=== PATIENT | female | born 1970 | race Caucasian/White ===

== ENCOUNTER → 2017-08-18 | Outpatient (CLI) | payer OTHER ==
[~2017-08-18] MED LIST: ATARAX,VISTARIL50 MG PO; BENADRYL ALLERG25 M5 PO; BUPROPION HCL150 M1 PO; CARAFATE1 G1 PO; CARBIDOPA/LEVOD1 TA1 PO; CITALOPRAM40 MG PO; CYMBALTA60 MG PO; DONNATAL1 TAB PO; EFFEXOR75 MG PO; HYDROCO/APAP TAB 10-; HYDROCODONE BIT1 T11 PO; MEDROL DOSEPAK4 MG PO; NORCO 10-325 T1 EACH PO; PREDNICOT20 MG PO; ROBAXIN500 MG PO; SODIUM PHOSPHATE DIBASIC PO; SODIUM PHOSPHATE MONOBASIC PO; TIZANIDINE HCL4 M1 PO; TIZANIDINE HCL4 MG PO; TRAMADOL HCL50 MG PO; VICODIN 5/500 505 MG PO; VICODIN 500 MG-1 TAB PO; XANAX0.25 MG PO; ZANAFLEX4 M2 PO; ZITHROMAX250 MG PO; ZOFRAN 4 MG ED2 TAB PO; [UNRECOGNIZED DRUG - OTHER] PO
== END | disposition home or self-care (01) ==
LOC: MRI 07:51
DX: M48.061 Spinal stenosis, lumbar region without neurogenic claudication (principal); M51.26 Other intervertebral disc displacement, lumbar region

== ENCOUNTER → 2017-10-14 | Outpatient (CLI) | payer OTHER | END | disposition home or self-care (01) | LOC: MAMMO 13:04 | DX: N64.9 Disorder of breast, unspecified (principal) ==

== ENCOUNTER 2018-08-11 15:07 | Emergency (ER) | payer OTHER ==
[~2018-08-11] VITALS: Wt 93.9 kg
[2018-08-11 15:48] LABS: BASO # 0.1 10*3/uL (0.0-0.1); BASO % 0.8 % (0.0-1.0); EOS # 0.1 10*3/uL (0.0-0.4); EOS % 0.8 % (1.0-4.0); HEMATOCRIT 26.9 % (37.0-47.0); HEMOGLOBIN 7.2 g/dl (12.0-16.0); LYMPH # 1.6 10*3/uL (1.3-4.4); LYMPH % 26.2 % (27.0-41.0); MEAN CELL VOLUME 65.1 fl (81.0-99.0); MEAN CORPUSCULAR HGB 17.4 pg (27.0-31.0); MEAN CORPUSCULAR HGB CONC 26.8 g/dl (33.0-37.0); MEAN PLATELET VOLUME 9.6 fl (9.6-12.3); MONO # 0.2 10*3/uL (0.1-1.0); MONO % 3.6 % (3.0-9.0); NEUT % 68.3 % (47.0-73.0); PLATELET COUNT AUTOMATED 472 10*3/uL (130-400); RED BLOOD COUNT 4.13 10*6/uL (4.10-5.10); RED CELL DISTRI WIDTH 22.5 % (0-14.5); WHITE BLOOD COUNT 5.9 10*3/uL (4.8-10.8)
[2018-08-11 15:57] LABS: ACT PARTIAL THROMBO TIME 21.8 SECONDS (20.8-31.5)
[2018-08-11 16:05] LABS: ALBUMIN 3.5 gm/dl (3.1-4.5); ALKALINE PHOSPHATASE 106 U/L (45-117); BUN 20 mg/dl (7-24); CHLORIDE 112 mmol/L (98-107); CREATININE 1.02 mg/dL (0.55-1.02); POTASSIUM 3.9 mmol/L (3.5-5.1); SGOT/AST 18 IU/L (3-35); SGPT/ALT 35 U/L (12-78); SODIUM 143 mmol/L (136-145); TOTAL PROTEIN 7.1 gm/dL (6.4-8.2)
[2018-08-11 17:03] LABS: IRON 12 ug/dL (50-170); TOTAL IRON BINDING CAPACITY 500 ug/dl (250-450)
[2018-08-11 17:39] LABS: FERRITIN 1.7 ng/mL (10.0-291.0)
== END 2018-08-11 21:25 | disposition home or self-care (01) ==
LOC: ED 15:07
PROVIDERS: Nurse Practitioner Family
DX: D50.9 Iron deficiency anemia, unspecified (principal); G89.29 Other chronic pain; K21.9 Gastro-esophageal reflux disease without esophagitis; E03.9 Hypothyroidism, unspecified; Z88.0 Allergy status to penicillin; Z88.8 Allergy status to other drugs, medicaments and biological substances; Z79.899 Other long term (current) drug therapy; Z90.710 Acquired absence of both cervix and uterus; Z90.49 Acquired absence of other specified parts of digestive tract; Z87.891 Personal history of nicotine dependence

== ENCOUNTER → 2020-03-31 | Outpatient (CLI) | payer OTHER ==
[2020-03-31 09:00] LABS: ALBUMIN 3.2 gm/dl (3.1-4.5); BUN 12 mg/dl (7-24); CHLORIDE 114 mmol/L (98-107); CHOLESTEROL 155 mg/dL (<200); CREATININE 0.69 mg/dL (0.55-1.02); POTASSIUM 3.9 mmol/L (3.5-5.1); SGOT/AST 32 IU/L (3-35); SGPT/ALT 60 U/L (12-78); SODIUM 142 mmol/L (136-145); TOTAL PROTEIN 6.6 gm/dL (6.4-8.2); TRIGLYCERIDES 72 mg/dl (<150); VLDL CHOLESTEROL 14 mg/dL (6-40)
[2020-03-31 09:01] LABS: ALKALINE PHOSPHATASE 97 U/L (45-117); HDL CHOLESTEROL 88 mg/dl (40-60); LDL CHOLESTEROL 53 mg/dL (9-159)
[2020-03-31 09:10] LABS: MEAN CELL VOLUME 89.6 fl (81.0-99.0); MEAN CORPUSCULAR HGB 27.3 pg (27.0-31.0); MEAN CORPUSCULAR HGB CONC 30.5 g/dl (33.0-37.0); MEAN PLATELET VOLUME 11.8 fl (9.6-12.3); RED BLOOD COUNT 4.69 10*6/uL (4.10-5.10); WHITE BLOOD COUNT 4.3 10*3/uL (4.8-10.8)
[2020-04-01 08:07] LABS: HEPATITIS B SURFACE AB Reactive (.)
[2020-04-01 12:09] LABS: RUBEOLA AB IGG 21.9 AU/mL (Immune >16.4); VARICELLA-ZOSTER IGG 1205 index (Immune >165)
== END | disposition home or self-care (01) ==
LOC: LAB 08:09
PROVIDERS: ATTEND Family Medicine
DX: Z13.220 Encounter for screening for lipoid disorders (principal); Z02.1 Encounter for pre-employment examination

== ENCOUNTER 2021-09-18 15:19 | Emergency (ER) | payer OTHER ==
[~2021-09-18] VITALS: Ht 162.5 cm; Wt 68.0 kg
[2021-09-18] VITALS (7 sets, daily range): BP systolic 98–118; BP diastolic 62–80
[2021-09-18 16:41] LABS: HEMATOCRIT 22.3 % (37.0-47.0); MEAN CELL VOLUME 62.3 fl (81.0-99.0); MEAN CORPUSCULAR HGB 15.1 pg (27.0-31.0); MEAN CORPUSCULAR HGB CONC 24.2 g/dl (33.0-37.0); MEAN PLATELET VOLUME 8.7 fl (9.6-12.3); PLATELET COUNT AUTOMATED 620 10*3/uL (130-400); RED BLOOD COUNT 3.58 10*6/uL (4.10-5.10); RED CELL DISTRI WIDTH 24.4 % (0-14.5); WHITE BLOOD COUNT 4.7 10*3/uL (4.8-10.8)
[2021-09-18 16:46] LABS: MANUAL DIFF REFLEX YES
[2021-09-18 16:58] LABS: ALKALINE PHOSPHATASE 86 U/L (45-117); BUN 8 mg/dl (7-24); CHLORIDE 109 mmol/L (98-107); CREATININE 0.64 mg/dL (0.55-1.02); POTASSIUM 3.9 mmol/L (3.5-5.1); SGOT/AST 17 IU/L (3-35); SGPT/ALT 34 U/L (12-78); SODIUM 140 mmol/L (136-145); TOTAL PROTEIN 6.5 gm/dL (6.4-8.2)
[2021-09-18 17:07] LABS: BASOPHILS 2 % (0-1); MICROCYTOSIS MODERATE; PLATELET SUFFICIENCY HIGH (NORMAL); TOTAL CELLS COUNTED 100 #CELLS
[2021-09-18 17:08] LABS: OVALOCYTES FEW; POLYCHROMASIA SLIGHT
[2021-09-18 17:09] LABS: SCHISTOCYTES FEW
== END 2021-09-18 23:43 | disposition home or self-care (01) ==
LOC: ED 15:19
PROVIDERS: Physician Assistant
DX: D64.9 Anemia, unspecified (principal); Z88.0 Allergy status to penicillin; Z88.6 Allergy status to analgesic agent; Z90.49 Acquired absence of other specified parts of digestive tract; Z98.890 Other specified postprocedural states; Z90.710 Acquired absence of both cervix and uterus; Z87.891 Personal history of nicotine dependence

== ENCOUNTER → 2021-09-18 | Outpatient (CLI) | payer OTHER ==
[2021-09-18 14:33] LABS: HEMATOCRIT 23.9 % (37.0-47.0); MEAN CELL VOLUME 62.1 fl (81.0-99.0); MEAN CORPUSCULAR HGB 15.3 pg (27.0-31.0); MEAN CORPUSCULAR HGB CONC 24.7 g/dl (33.0-37.0); MEAN PLATELET VOLUME 8.3 fl (9.6-12.3); RED BLOOD COUNT 3.85 10*6/uL (4.10-5.10); RED CELL DISTRI WIDTH 24.7 % (0-14.5); WHITE BLOOD COUNT 5.3 10*3/uL (4.8-10.8)
[2021-09-18 14:51] LABS: BUN 9 mg/dl (7-24); CHLORIDE 107 mmol/L (98-107); CHOLESTEROL 126 mg/dL (<200); CREATININE 0.65 mg/dL (0.55-1.02); IRON 14 ug/dL (50-170); POTASSIUM 3.8 mmol/L (3.5-5.1); SGOT/AST 18 IU/L (3-35); SGPT/ALT 34 U/L (12-78); SODIUM 137 mmol/L (136-145); TRIGLYCERIDES 64 mg/dl (<150)
[2021-09-18 14:53] LABS: ALKALINE PHOSPHATASE 94 U/L (45-117); LDL CHOLESTEROL 34 mg/dL (9-159); TOTAL IRON BINDING CAPACITY 580 ug/dl (250-450); TOTAL PROTEIN 7.1 gm/dL (6.4-8.2)
[2021-09-18 15:14] LABS: VITAMIN D, 25-HYDROXY 23.7 ng/mL (30-100)
== END | disposition home or self-care (01) ==
LOC: LAB 14:12
PROVIDERS: ATTEND Family Medicine
DX: K21.9 Gastro-esophageal reflux disease without esophagitis (principal); K29.80 Duodenitis without bleeding; D64.9 Anemia, unspecified; R53.83 Other fatigue

== ENCOUNTER → 2021-10-05 | Outpatient (CLI) | payer OTHER ==
[2021-10-05 10:38] LABS: HEMATOCRIT 28.5 % (37.0-47.0); MEAN CELL VOLUME 68.2 fl (81.0-99.0); MEAN CORPUSCULAR HGB 17.7 pg (27.0-31.0); MEAN PLATELET VOLUME 9.6 fl (9.6-12.3); RED BLOOD COUNT 4.18 10*6/uL (4.10-5.10); RED CELL DISTRI WIDTH 31.5 % (0-14.5); RETICULOCYTE % 2.89 % (0.50-2.50); WHITE BLOOD COUNT 5.5 10*3/uL (4.8-10.8)
[2021-10-05 10:54] LABS: BUN 12 mg/dl (7-24); CHLORIDE 108 mmol/L (98-107); CREATININE 0.56 mg/dL (0.55-1.02); IRON 24 ug/dL (50-170); POTASSIUM 3.7 mmol/L (3.5-5.1); SGOT/AST 17 IU/L (3-35); SGPT/ALT 27 U/L (12-78); SODIUM 139 mmol/L (136-145); TOTAL IRON BINDING CAPACITY 534 ug/dl (250-450)
[2021-10-05 11:01] LABS: ALKALINE PHOSPHATASE 105 U/L (45-117); FREE T4 0.87 ng/dl (0.76-1.46); THYROID STIM HORMONE (HS) 0.903 uIU/ml (0.358-4.75); TOTAL PROTEIN 6.8 gm/dL (6.4-8.2)
== END | disposition home or self-care (01) ==
LOC: LAB 10:01
PROVIDERS: ATTEND Family Medicine
DX: R53.83 Other fatigue (principal); D64.9 Anemia, unspecified; D75.839 Thrombocytosis, unspecified

== ENCOUNTER → 2022-04-29 | Outpatient (CLI) | payer OTHER ==
[2022-04-29 08:40] LABS: EOS # 0.1 10*3/uL (0.0-0.4); EOS % 1.5 % (1.0-4.0); LYMPH # 1.4 10*3/uL (1.3-4.4); LYMPH % 33.4 % (27.0-41.0); MEAN CELL VOLUME 91.1 fl (81.0-99.0); MEAN CORPUSCULAR HGB 28.5 pg (27.0-31.0); MEAN CORPUSCULAR HGB CONC 31.3 g/dl (33.0-37.0); MONO # 0.3 10*3/uL (0.1-1.0); MONO % 6.4 % (3.0-9.0); NEUT # 2.3 10*3/uL (2.3-7.9); NEUT % 56.5 % (47.0-73.0); PLATELET COUNT AUTOMATED 189 10*3/uL (130-400); RED BLOOD COUNT 4.17 10*6/uL (4.10-5.10); WHITE BLOOD COUNT 4.1 10*3/uL (4.8-10.8)
[2022-04-29 08:51] LABS: ALKALINE PHOSPHATASE 116 U/L (45-117); BUN 12 mg/dl (7-24); CHLORIDE 112 mmol/L (98-107); CREATININE 0.83 mg/dL (0.55-1.02); POTASSIUM 4.3 mmol/L (3.5-5.1); SGOT/AST 32 IU/L (3-35); SGPT/ALT 44 U/L (12-78); SODIUM 143 mmol/L (136-145); TOTAL PROTEIN 6.4 gm/dL (6.4-8.2)
== END ==
LOC: LAB 07:51
PROVIDERS: ATTEND Internal Medicine Hematology & Oncology
DX: C18.2 Malignant neoplasm of ascending colon (principal)

== ENCOUNTER → 2022-05-11 | Outpatient (CLI) | payer OTHER ==
[2022-05-11 10:36] LABS: BASO % 1.2 % (0.0-1.0); EOS # 0.1 10*3/uL (0.0-0.4); EOS % 2.8 % (1.0-4.0); HEMATOCRIT 37.3 % (37.0-47.0); LYMPH # 1.5 10*3/uL (1.3-4.4); LYMPH % 46.1 % (27.0-41.0); MEAN CELL VOLUME 91.4 fl (81.0-99.0); MEAN CORPUSCULAR HGB 28.7 pg (27.0-31.0); MEAN CORPUSCULAR HGB CONC 31.4 g/dl (33.0-37.0); MEAN PLATELET VOLUME 9.7 fl (9.6-12.3); MONO # 0.3 10*3/uL (0.1-1.0); MONO % 8.7 % (3.0-9.0); NEUT # 1.3 10*3/uL (2.3-7.9); NEUT % 40.9 % (47.0-73.0); PLATELET COUNT AUTOMATED 194 10*3/uL (130-400); RED BLOOD COUNT 4.08 10*6/uL (4.10-5.10); RED CELL DISTRI WIDTH 16.7 % (0-14.5); WHITE BLOOD COUNT 3.2 10*3/uL (4.8-10.8)
[2022-05-11 10:55] LABS: ALKALINE PHOSPHATASE 116 U/L (45-117); BUN 10 mg/dl (7-24); CHLORIDE 107 mmol/L (98-107); CREATININE 0.83 mg/dL (0.55-1.02); POTASSIUM 4.3 mmol/L (3.5-5.1); SGOT/AST 30 IU/L (3-35); SGPT/ALT 35 U/L (12-78); SODIUM 141 mmol/L (136-145); TOTAL PROTEIN 6.7 gm/dL (6.4-8.2)
== END | disposition home or self-care (01) ==
LOC: LAB 10:22
PROVIDERS: ATTEND Internal Medicine Hematology & Oncology
DX: C18.2 Malignant neoplasm of ascending colon (principal)

== ENCOUNTER → 2022-05-25 | Outpatient (CLI) | payer OTHER ==
[2022-05-25 09:57] LABS: EOS # 0.1 10*3/uL (0.0-0.4); EOS % 4.5 % (1.0-4.0); HEMATOCRIT 40.6 % (37.0-47.0); LYMPH # 0.7 10*3/uL (1.3-4.4); LYMPH % 25.5 % (27.0-41.0); MEAN CORPUSCULAR HGB CONC 32.3 g/dl (33.0-37.0); MEAN PLATELET VOLUME 11.5 fl (9.6-12.3); MONO # 0.2 10*3/uL (0.1-1.0); MONO % 7.6 % (3.0-9.0); NEUT # 1.7 10*3/uL (2.3-7.9); PLATELET COUNT AUTOMATED 238 10*3/uL (130-400); RED BLOOD COUNT 4.51 10*6/uL (4.10-5.10); RED CELL DISTRI WIDTH 16.6 % (0-14.5); WHITE BLOOD COUNT 2.9 10*3/uL (4.8-10.8)
[2022-05-25 10:35] LABS: ALKALINE PHOSPHATASE 106 U/L (45-117); BUN 10 mg/dl (7-24); CHLORIDE 114 mmol/L (98-107); CREATININE 0.81 mg/dL (0.55-1.02); POTASSIUM 3.5 mmol/L (3.5-5.1); SGOT/AST 30 IU/L (3-35); SGPT/ALT 35 U/L (12-78); SODIUM 143 mmol/L (136-145); TOTAL PROTEIN 6.8 gm/dL (6.4-8.2)
== END | disposition home or self-care (01) ==
LOC: LAB 09:27
PROVIDERS: ATTEND Internal Medicine Hematology & Oncology
DX: C18.2 Malignant neoplasm of ascending colon (principal)

== ENCOUNTER → 2023-01-06 | Outpatient (CLI) | payer OTHER | LOC: MAMMO 00:17 | PROVIDERS: ATTEND Nurse Practitioner Women's Health | DX: Z12.31 Encounter for screening mammogram for malignant neoplasm of breast (principal) ==

== ENCOUNTER 2023-04-16 08:04 | Emergency (ER) | payer OTHER ==
[~2023-04-16] VITALS: Ht 162.5 cm; Wt 72.6 kg
== END 2023-04-16 09:55 | disposition home or self-care (01) ==
LOC: ED 08:04
DX: H57.12 Ocular pain, left eye (principal); F32.A Depression, unspecified; D64.9 Anemia, unspecified; Z88.0 Allergy status to penicillin; Z88.6 Allergy status to analgesic agent; Z90.710 Acquired absence of both cervix and uterus; Z90.49 Acquired absence of other specified parts of digestive tract; Z98.890 Other specified postprocedural states; Z87.891 Personal history of nicotine dependence

== ENCOUNTER → 2024-03-05 | Outpatient (CLI) | payer OTHER ==
[2024-03-05 12:01] LABS: HEMATOCRIT 41.6 % (37.0-47.0); MEAN CELL VOLUME 92.7 fl (81.0-99.0); MEAN CORPUSCULAR HGB 30.1 pg (27.0-31.0); MEAN CORPUSCULAR HGB CONC 32.5 g/dl (33.0-37.0); MEAN PLATELET VOLUME 10.3 fl (9.6-12.3); RED BLOOD COUNT 4.49 10*6/uL (4.10-5.10); RED CELL DISTRI WIDTH 14.6 % (0-14.5); WHITE BLOOD COUNT 4.2 10*3/uL (4.8-10.8)
[2024-03-05 12:40] LABS: VITAMIN D, 25-HYDROXY 33.5 ng/mL (30-100)
[2024-03-05 12:41] LABS: ALKALINE PHOSPHATASE 96 U/L (46-116); BUN 10 mg/dl (9-23); CHLORIDE 107 mmol/L (98-107); CHOLESTEROL 162 mg/dL (<200); FREE T4 0.87 ng/dl (0.89-1.76); LDL CHOLESTEROL 63 mg/dL (9-159); POTASSIUM 3.9 mmol/L (3.4-5.1); SGPT/ALT 42 U/L (5-49); TOTAL PROTEIN 6.6 gm/dL (6.0-8.0); TRIGLYCERIDES 44 mg/dl (<150)
[2024-03-08 01:06] LABS: TESTOSTERONE FREE, (DIRECT) <0.2 pg/mL (0.0-4.2)
== END | disposition home or self-care (01) ==
LOC: LAB 11:32
PROVIDERS: ATTEND Family Medicine
DX: R53.83 Other fatigue (principal); D64.9 Anemia, unspecified; E55.9 Vitamin D deficiency, unspecified; E78.00 Pure hypercholesterolemia, unspecified; C18.9 Malignant neoplasm of colon, unspecified; R63.5 Abnormal weight gain

== ENCOUNTER → 2025-03-28 | Outpatient (CLI) | payer OTHER | LOC: RAD 11:40 | PROVIDERS: ATTEND Family Medicine | DX: S22.43XA Multiple fractures of ribs, bilateral, initial encounter for closed fracture (principal); X58.XXXA Exposure to other specified factors, initial encounter; Y93.89 Activity, other specified; Y92.89 Other specified places as the place of occurrence of the external cause; Y99.8 Other external cause status ==

== ENCOUNTER → 2025-04-26 | Outpatient (CLI) | payer OTHER ==
[~2025-04-26] MED LIST changes: +Technetium Tc 99M Medronate 1 KIT KIT IV SCH
== END | disposition home or self-care (01) ==
LOC: NM 04-08 10:00
PROVIDERS: ATTEND Family Medicine
DX: C18.9 Malignant neoplasm of colon, unspecified (principal); R07.89 Other chest pain